=== PATIENT | male | born 1975 | race Two or more races ===

== ENCOUNTER 2018-03-08 10:17 | Emergency (ER) | END 2018-03-08 11:49 | disposition home or self-care (01) ==

== ENCOUNTER 2018-10-15 12:43 | Emergency (ER) | payer MEDICAID ==
[~2018-10-15] VITALS: Ht 165.1 cm; Wt 65.8 kg
[~2018-10-15 12:43] MED LIST: CEPH-443 PO; FOLI-49 PO; MULT-761 PO; THIA50TA7 PO
[2018-10-15 13:05] VITALS: Ht 165.1 cm; Wt 65.8 kg
[2018-10-15 17:15] VITALS: BP 153/82; PULSE 72; RESP 17
--- NOTE | 2018-10-18 22:55 | ERD ---
ER Documentation Chief Complaint Chief Complaint head pain x2wks, no visible trauma noted, had injury before HPI 42-year-old male patient with no significant past medical history presents to the ED stating that he has had intermittent headaches that started about 2 weeks ago. Reports that he feels dizzy - is not associated with positional movements. Describes the pain as an achy sensation and rates it a 7 out of 10. Denies any neck stiffness. States that he has had a previous head injury. Denies any loss of consciousness. Denies any fever, chills, nausea, vomiting, diarrhea. ROS All systems reviewed and are negative except as per history of present illness. Medications Home Meds Active Scripts Folic Acid* (Folic Acid*) 1 Mg Tablet, 1 MG PO DAILY, #30 TAB 3 Refills Prov:LINDA ROOTP S. 08/12/18 Thiamine* (Thiamine*) 50 Mg Tablet, 50 MG PO DAILY, #30 TAB 3 Refills Prov:ALFREDA ROOTEEP S. 08/12/18 Multivitamin (MULTI VITAMIN DAILY) 1 Each Tablet, 1 TAB PO DAILY, #30 TAB 3 Refills Prov:IVETTNELI S. 08/12/18 Cephalexin* (Keflex*) 500 Mg Capsule, 500 MG PO QID for 7 Days, CAP Prov:ANTONIO CHIANG PA-C 03/08/18 Allergies Allergies: Coded Allergies: No Known Allergy (Unverified , 03/08/18) PMhx/Soc Medical and Surgical Hx: pt denies Medical Hx, pt denies Surgical Hx Hx Miscellaneous Medical Probl: Yes (nose bleeds) Hx Alcohol Use: No Hx Substance Use: No Hx Tobacco Use: No FmHx Family History: No diabetes, No coronary disease Physical Exam Vitals Vital Signs Date Temp Pulse Resp B/P (MAP) Pulse Ox O2 O2 Flow FiO2 Time Delivery Rate 10/15/18 98.4 72 17 153/82 100 Room Air 17:15 (105) 10/15/18 98.7 90 18 114/67 100 13:05 (83) Physical Exam Const: Paa-[id number]-ehwdhpudr, well-nourished. In no acute distress. Head: Atraumatic, normocephalic Eyes: Normal Conjunctiva without injection. No purulent discharge. PERRLA. EOMI ENT: Normal external ear. Ear canal without erythema. Tympanic membrane pearly carr without effusion or bulging. Nasal canal clear with normal turbinates. Moist oropharynx without tonsillar exudates. Non-erythematous pharynx. Uvula midline. No drooling. No trismus. Neck: No cervical midline tenderness. Full range of motion. No meningismus. No cervical lymphadenopathy. No JVD. Resp: Clear to auscultation bilaterally. No wheezing, rhonchi, rales, or crackles. No accessory muscle use. No retractions. Cardio: Regular rate and rhythm. No murmurs, rubs or gallops. Abd: Soft, non tender, non distended. Normal bowel sounds. No palpable masses. No rebound tenderness. No guarding. Negative McBurney's Point. Negative Diaz's Sign. Skin: Normal skin turgor. No petechiae or rashes Back: No midline tenderness. No CVA tenderness. Ext: No cyanosis, or edema. Distal pulses intact bilaterally. Neur: Awake and alert. Normal gait. Normal coordination. Cranial Nerves II- VII intact. Normal finger to nose. Muscle strength 5/5. Sensation intact. Psych: Normal Mood and Affect Results 24 hrs Laboratory Tests Test 10/15/18 15:42 Bedside Glucose 105 mg/dL Procedures/MDM 42-year-old male patient with no significant past medical history presents ED complaining of a gradual onset of headache and dizziness due to a head injury that started about 2 weeks ago. Patient is afebrile and nontoxic-appearing. CT of the brain without contrast ordered to further evaluate patient. IMPRESSION: 1. No evidence of acute intracranial hemorrhage, infarct, or extra-axial fluid collection. 2. Cortical atrophy and periventricular/subcortical white matter changes, likely consistent with chronic microvascular angiopathy. If clinical symptoms persist, consider follow-up MRI of the brain. EKG reviewed and interpreted by Dr. Bhatt Rate/Rhythm: [75 bpm,Normal Sinus Rhythm] No ectopy, no ST elevations, normal axis. QRS, ST, T-waves: [No changes consistent w/ acute ischemia] Impression: [No evidence of ischemia or arrhythmia] Low suspicion for acute myocardial infarction, pneumothorax, pneumonia, cardiac tamponade, Ospbn-Nivheqgom-Jnezf Syndrome, Brugada Syndrome, pulmonary embolism, AAA, aortic dissection, thoracic aortic dissection, endocarditis, myocarditis, pericarditis, cocaine-related ischemia, Boerhaave's syndrome, cardiac dysrhythmi as,meningitis, intracranial bleed, seizure, stroke, TIA or other emergent conditions. Low suspicion for acute myocardial infarction, pneumothorax, pericarditis, myocarditis, endocarditis, pneumonia, cardiac tamponade, pulmonary embolism, pleural effusion, AAA, aortic dissection, Boerhaave's syndrome, cardiac dysrhythmias,meningitis, intracranial bleed, seizure, stroke, TIA or other emergent conditions. Diagnosis: Dizziness Discharge medications: Tylenol Follow up with primary care physician in 1-2 days for a referral to see a neurologist if symptoms do not improve. Instructed patient to return to the ED sooner for any worsening symptoms. Patient's questions were answered. Patient is hemodynamically stable. Patient understood and agreed with discharge plan. Patient discharged stable. Disclaimer: Inadvertent spelling and grammatical errors are likely due to EHR/dictation software use and do not reflect on the overall quality of patient care. Also, please note that the electronic time recorded on this note does not necessarily reflect the actual time of the patient encounter. Departure Diagnosis: Primary Impression: Dizziness Condition: Stable Patient Instructions: Dizziness, Unk Cause Additional Instructions: Llame al doctor MAANA y katie henrique ELVIN PARA DENTRO DE 2-3 RASMUSSEN para henrique derivacin para shantanu a un neurlogo.Dgale a la secretaria que nosotros le instruimos hacer esta elvin.Avise o llame si trevino condicin se empeora antes de la elvin. Regresa aqui si peor o no mejor. TRISH CARNEY PA-C Oct 18, 2018 22:55
== END 2018-10-15 17:29 | disposition home or self-care (01) ==
LOC: FTE 12:43
DX: R42 Dizziness and giddiness (principal)
CPT/HCPCS: 70450; 82962; 93005; Z7502